=== PATIENT | male | born 1940 | race Asian ===

== ENCOUNTER 2019-06-28 07:33 | Day surgery (SDC) | payer MEDICARE, MEDICAID ==
[~2019-06-28] VITALS: Ht 167.6 cm; Wt 78.2 kg
[~2019-06-28 07:33] MED LIST: 0.9% SODIUM CHLORIDE 10 ML SYRINGE IVP PRN; METOPROLOL TARTRATE 50 MG TABLET PO PRN
[2019-06-28] MEDS ORDERED: ROSU20TA23 PO (08:01)
[2019-06-28] MEDS ORDERED: FINA5TAB41 PO (08:01)
[2019-06-28] MEDS ORDERED: METF500T20 PO (08:01)
[2019-06-28] MEDS ORDERED: METF-960 PO (08:01)
[2019-06-28] MEDS ORDERED: LOSA25TA41 PO (08:01)
[2019-06-28 08:04] LABS: ANION GAP 8 mmol/L (8-16); CALCIUM, TOTAL 8.7 mg/dL (8.8-10.5); CARBON DIOXIDE 28 mmol/L (22-29); CHLORIDE 102 mmol/L (98-107); CREATININE 1.16 mg/dL (0.60-1.30); GLUCOSE,RANDOM 194 mg/dL (70-110); POTASSIUM 4.6 mmol/L (3.5-5.1); SODIUM SERUM 138 mmol/L (136-145); UREA NITROGEN, BLOOD 14 mg/dL (7-18)
[2019-06-28 08:05] LABS: GLOMERULAR FILTR. RATE CALC > 60 mL/min (>60)
[2019-06-28] MEDS ORDERED: ALLO100T PO (08:05)
[2019-06-28] MEDS ORDERED: PREG50 PO (08:05)
[2019-06-28] MEDS ORDERED: CLOP75TA3 PO (08:05)
[2019-06-28] MEDS ORDERED: ASPI-1182 PO (08:05)
[2019-06-28] MEDS ORDERED: BISO5TAB13 PO (08:05)
[2019-06-28] MEDS ORDERED: NITROGLYCERIN 400 MCG/SUBLINGUAL SPRAY 4.9 GM BOTTLE SL ONE ×2 (08:26→09:48)
[2019-06-28] MEDS ORDERED: ATROPINE SULFATE 0.1 MG/ML 10 ML SYRINGE IVP ONE (08:26)
[2019-06-28] MEDS ORDERED: IOVERSOL 350 MG/ML 150 ML VIAL ONE (09:31)
[2019-06-28] MEDS ORDERED: SODIUM CHLORIDE 0.9% 100 ML ONE (09:31)
== END 2019-06-28 10:30 | disposition home or self-care (01) ==
LOC: SURGERY 07:33 → EDSTATUS 09:00 → SURGERY 10:30
PROVIDERS: ATTEND Internal Medicine Cardiovascular Disease
DX: R07.9 Chest pain, unspecified (principal); I25.10 Atherosclerotic heart disease of native coronary artery without angina pectoris; Z95.5 Presence of coronary angioplasty implant and graft
CPT/HCPCS: 36415; 75574; 80048; 93005; J7050; Q9967; J0461